=== PATIENT | male | born 1940 | race Caucasian/White ===

== ENCOUNTER → 2024-05-18 10:50 | Outpatient (REF) | payer SELFPAY | LOC: HWRAD 10:50 | PROVIDERS: ATTENDING PHYSICIAN Family Medicine | DX: E78.5 Hyperlipidemia, unspecified (principal); Z13.6 Encounter for screening for cardiovascular disorders | CPT/HCPCS: 75571 ==

== ENCOUNTER 2025-05-30 08:37 | Emergency (ER) | payer OTHER, MEDICARE, SELFPAY ==
[2025-05-30 08:39] VITALS: BP 132/70; BMI 22.3
--- NOTE | 2025-05-30 08:51 | ED.GENMED ---
History of Present Illness
General
Chief Complaint: Musculo-Skeletal Complaint
Time Seen by Provider: 05/30/25 08:40
History of Present Illness
History of Present Illness:
84 yo male presents to the Emergency Department via EMS for evaluation of R arm pain. He was trying to catch his to prevent her from falling when the injury occurred. He admits to severe anxiety and became abruptly diaphoretic, which resulted
in 911 call. He arrives to ED vastly improved, with no complaints of shoulder, chest or back pain. No SOB.
Past History
Past History
ED Past Medical History: Other (bilateral in the hernia repairs)
Social History
Tobacco: Non-smoker
Alcohol: Occasional
Family History
Family History: Negative Diabetes, Hypertension or CAD
Review of Systems
Review of Systems
Allergies reviewed?: Yes
All Other Systems: ROS reviewed and negative except as documented in HPI and ROS
Phy Exam
Physical Exam
Physical Exam:
GEN: Well appearing, NAD, WDWN
HEENT: Oral mucosa moist, no scleral icterus
Cardiac: Regular rate
Lung: No respiratory distress, no tachypnea
MSK: Sulcus deformity to the right bicep with no ecchymosis, right shoulder and right elbow range of motion normal, intact bicep strength to flexion and supination
Skin: Good color, no pallor or jaundice, no rashes
Neuro: AO x3, moves all extremities freely
Psych: Calm, cooperative
Course
Vital Signs
Initial and Last Documented VS:
Initial Vital Signs
Temp Pulse Resp BP Pulse Ox
96.6 F L 62 16 132/70 100
05/30/25 08:39 05/30/25 08:39 05/30/25 08:39 05/30/25 08:39 05/30/25 08:39
Last Documented Vital Signs
Temp Pulse Resp BP Pulse Ox
96.6 F L 62 16 132/70 100
05/30/25 08:39 05/30/25 08:39 05/30/25 08:39 05/30/25 08:39 05/30/25 08:52
MDM/Problems Addressed
MDM/Problems Addressed:
Exam consistent with proximal bicep tendon rupture, no ecchymosis or swelling that would warrant x-rays for bony trauma. He likely had an anxiety/vagal reaction that to the injury resulting in his diaphoresis and he is now improved. Recommend
outpatient orthopedic evaluation
*Pulse Oximetry
SaO2: 100
Oxygen Mode of Delivery: Room air
Patient hypoxic: no
*Critical Care Note
Total Time (30-74mins, 75-104mins- exclusive of procedures): Not Applicable
ED Attending Note
-
Portions of this chart may have been created with voice recognition software.� Occasional wrong word or��sound alike� substitutions may have occurred due to the inherent limitations of voice recognition software.
Discharge Plan
Departure
Patient Disposition: Home (Routine Discharge)
Date of Disposition: 05/30/25
Time of Disposition: 08:51
Patient with high blood pressure during this ER visit?: No
Discharge Problem:
Rupture of right biceps tendon
Instructions: Biceps Tendon Rupture (DC)
Prescriptions:
No Action
dexlansoprazole [Dexilant] 30 MG capsule,biphase delayed releas
30 mg PO DAILY Qty: 20 0RF
Referrals:
Bartolome Negrete MD [Active, Orthopedics]
Interventions
Interventions:
*Risk Screen - Suicide Last Done: 05/30/25 08:39
*General Assessment Last Done: 05/30/25 08:39
*Neglect/Abuse Screening Last Done: 05/30/25 08:39
*ED- Fall Risk Assessment Last Done: 05/30/25 08:39
*ED COVID-19 Vaccine History Last Done: 05/30/25 08:39
*ED Influenza Vaccine History Last Done: 05/30/25 08:39
*Nursing Disposition Last Done: 05/30/25 09:13
ED-Musculoskeletal Assessment Last Done: 05/30/25 08:39
Discharge Date and Time
Discharge Date/Time: 05/30/25 09:14
Print Language: GRENADIAN
== END 2025-05-30 09:14 | disposition home or self-care (01) ==
LOC: EMR 08:37
PROVIDERS: EMERGENCY PHYSICIAN Emergency Medicine; FAMILY PHYSICIAN Psychiatry & Neurology Psychiatry
DX: S46.211A Strain of muscle, fascia and tendon of other parts of biceps, right arm, initial encounter (principal); X50.1XXA Overexertion from prolonged static or awkward postures, initial encounter
CPT/HCPCS: 99283